=== PATIENT | male | born 1965 | race Caucasian/White ===

== ENCOUNTER 2022-04-08 21:27 | Emergency (ER) | payer OTHER ==
[~2022-04-08] VITALS: Ht 167.6 cm; Wt 110.0 kg
[2022-04-08 21:31] VITALS: BP 93/62
== END 2022-04-08 22:59 | disposition left against medical advice (07) ==
LOC: ER 21:27
DX: Z53.21 Procedure and treatment not carried out due to patient leaving prior to being seen by health care provider (principal)